=== PATIENT | female | born 1980 | race Caucasian/White ===

== ENCOUNTER → 2016-05-27 | Outpatient (CLI) | payer BC ==
[2016-05-27 08:11] LABS: HEMOGLOBIN 13.3 gm/dl (12.3-15.3); RED BLOOD COUNT 4.54 M/UL (4.00-5.10)
[2016-05-27 09:03] LABS: BUN/CREATININE RATIO 14 (0-10)
== END ==
LOC: LAB 07:18
PROVIDERS: Obstetrics & Gynecology
DX: N91.2 Amenorrhea, unspecified (principal); L68.0 Hirsutism; Z91.041 Radiographic dye allergy status; Z91.040 Latex allergy status; Z91.018 Allergy to other foods; Z91.013 Allergy to seafood
CPT/HCPCS: 36415; 80053; 82627; 82670; 83001; 83002; 83036; 84144; 84146; 84403; 84439; 84443; 84702; 85027

== ENCOUNTER → 2016-06-09 | Outpatient (CLI) | payer BC ==
[2016-06-09 08:08] LABS: HEMOGLOBIN 13.5 gm/dl (12.3-15.3); RED BLOOD COUNT 4.58 M/UL (4.00-5.10); WHITE BLOOD COUNT 6.6 K/UL (4.5-11.0)
[2016-06-09 08:27] LABS: BUN/CREATININE RATIO 17 (0-10)
== END ==
LOC: LAB 07:19
PROVIDERS: Dermatology
DX: L70.9 Acne, unspecified (principal)
CPT/HCPCS: 36415; 80053; 82248; 82465; 84478; 85027

== ENCOUNTER → 2016-08-04 | Outpatient (CLI) | payer BC | LOC: LAB 07:33 | DX: L70.9 Acne, unspecified (principal) | CPT/HCPCS: 36415; 80076; 82465; 84478 ==

== ENCOUNTER → 2021-09-12 | Outpatient (CLI) | payer BC ==
[2021-09-12 10:17] LABS: HEMOGLOBIN 12.9 gm/dl (12.3-15.3); RED BLOOD COUNT 4.52 M/UL (4.00-5.10); WHITE BLOOD COUNT 7.5 K/UL (4.5-11.0)
[2021-09-12 10:36] LABS: BUN/CREATININE RATIO 12 (0-10)
[2021-09-13 09:08] LABS: HBSAG SCREEN Negative (Negative); HCV AB <0.1 (0.0-0.9); HEP A AB, IGM Negative (Negative); HEP B CORE AB, IGM Negative (Negative)
[2021-09-15 20:11] LABS: QUANTIFERON MITOGEN VALUE >10.00 IU/mL (.); QUANTIFERON-TB GOLD PLUS Negative (Negative)
== END ==
LOC: LAB 09:30
PROVIDERS: Dermatology
DX: J43.9 Emphysema, unspecified (principal); L73.2 Hidradenitis suppurativa
CPT/HCPCS: 36415; 71046; 80053; 80061; 80074; 85025; 85027; 86140